=== PATIENT | female | born 1995 | race Caucasian/White ===

== ENCOUNTER 2018-07-02 17:45 | Emergency (ER) | payer MEDICAID ==
[~2018-07-02] VITALS: Ht 180.3 cm; Wt 86.2 kg
--- NOTE | 2018-07-02 17:54 | NUR ---
PT AMBULATED TO ER BED 01
[2018-07-02 18:00] VITALS: BP 126/77
--- NOTE | 2018-07-02 18:06 | NUR ---
PT ATTEMPTING TO PROVIDE URINE SAMPLE IN URINE CUP
--- NOTE | 2018-07-02 18:16 | NUR ---
PT AMBULATED TO ROOM 1, WITH C/O UMBILICAL REGION SHARP BURNING PAIN X TODAY WHILE AT WORK ---ADDS HAS HAD SAME PAIN INTERMMITENTLY SINCE 17 YRS OF AGE +NAUSEA DENIES LOOSE/WATERY STOOLS OR EMESIS LAST BM TODAY DENIES STRAINING. ABD ROUND, SOFT, SLIGHTLY TENDER TO PALPATION. DENIES DYSURIA/ FEVERS/CHILLS. HX--DENIES RX--FLONASE
[2018-07-02] MEDS ORDERED: FAMOTIDINE 20 MG TAB PO ONE (18:45)
[2018-07-02] MEDS ORDERED: ONDANSETRON 4 MG ODT PO ONE (18:45)
--- NOTE | 2018-07-02 18:52 | NUR ---
XRAY AT BEDSIDE
--- NOTE | 2018-07-02 19:05 | NUR ---
REPORT TAKEN FROM FARZANA LOZANO
[2018-07-02 19:13] VITALS: BP 124/75
--- NOTE | 2018-07-02 19:13 | NUR ---
Patient discharged with v/s stable. Written and verbal after care instructions given and explained. Patient alert, oriented and verbalized understanding of instructions. Ambulatory with steady gait. All questions addressed prior to discharge. ID band removed. Patient advised to follow up with PMD. Rx of MIRALAX, PEBCID, ZOFRAN given. Patient educated on indication of medication including possible reaction and side effects. Opportunity to ask questions provided and answered.
== END 2018-07-02 19:13 | disposition home or self-care (01) ==
LOC: MED 17:45
DX: K59.00 Constipation, unspecified (principal); K29.70 Gastritis, unspecified, without bleeding
CPT/HCPCS: 81002; 81025; 99283; S0119